=== PATIENT | female | born 1945 | race Caucasian/White ===

== ENCOUNTER 2016-09-05 12:59 | Emergency (ER) | payer MEDICARE, OTHER ==
[~2016-09-05] VITALS: Ht 160 cm; Wt 75.0 kg
[~2016-09-05 12:59] MED LIST: ATOR10TA65 PO; GABA300C PO; HYDR-3498 PO; LISI20TA PO; METF500T4 PO; METH500T8 PO; METO5TAB2 PO; OMEP40CA3 PO; ONDA4TAB35 PO; PANT40TA3 PO; POLY17PO6 PO
[2016-09-05 13:01] VITALS: Ht 160 cm; Wt 75.0 kg
--- NOTE | 2016-09-05 16:16 | RADRPT ---
PROCEDURE: CT Head without contrast. CLINICAL INDICATION: occopital headache, Neck pain x 1 month TECHNIQUE: Continuous axial CT images were obtained from the base of skull to the vertex. No cont rast was administered. The calculated radiation dose measures 720 mGy centimeters. The CTDI measures 44 mGy COMPARISON: None available FINDINGS: There is mild diffuse cerebral volume loss. The ventricles are symmetric and normal in configuratio n. There is no mass effect or midline shift. There is no abnormal intra-axial or extra-axial fluid collection. There is no evidence of intracranial hemorrhage. There are scattered areas of decreased attenuation in the supratentorial white matter, consistent wi th mild small vessel ischemic changes. There is mild to moderate atherosclerotic vascular calcificat ion. The bony calvarium is intact. The orbital soft tissue contents are unremarkable. Paranasal sinuses appear clear. IMPRESSION: 1. Mild age related cerebral volume loss. Mild small vessel ischemic changes. 2. Mild to moderate atherosclerotic vascular calcification. 3. No mass effect or acute intracranial bleed. RPTAT: HBST .Jules Jarquin MD, MD Date Time Electronically viewed and signed by .Jules Jarquin MD, on 09/05/2016 16:15 .T/
--- NOTE | 2016-09-05 16:30 | RADRPT ---
PROCEDURE: CT Cervical Spine without contrast. CLINICAL INDICATION: Neck pain x 1 month TECHNIQUE: Multiple axial cuts through the cervical spine with coronal and sagittal reformats were obtained without contrast. The calculated radiation dose measures 425 mGy centimeters. The CTDI eduardo sures 22 mGy COMPARISON: No prior studies are available for comparison. FINDINGS: There is mild straightening of the normal cervical lordosis. There is mild retrolisthesis at C4-C5, 3 mm. There is moderate to severe disk space narrowing at C4-C5. Vertebral body heights are maint ained. There is mild bony demineralization. The atlantoaxial articulation demonstrates mild to moderate degenerative change.. There is normal c raniocervical alignment. C2-3: There is no gross disk abnormality. There is no significant facet hypertrophy. There is no c entral canal or neural foraminal stenosis. C3-4: There is a mild broad-based disk protrusion, 2 mm. There is minimal bilateral facet hypertrop hy. There is minimal central canal stenosis. There is minimal bilateral foraminal stenosis.. C4-5: There is a mild retrolisthesis, and a mild broad-based disk protrusion. There is bilateral un covertebral hypertrophy. There is mild to moderate bilateral facet hypertrophy. There is at least moderate bony central canal stenosis with AP canal diameter measuring 7.5 mm. There is moderate to severe bilateral foraminal stenosis.. C5-6: There is a minimal disk osteophyte complex, and minimal right uncovertebral hypertrophy. Ther e is mild bilateral facet hypertrophy. There is no bony central canal stenosis. There is mild to m oderate right and mild left bony foraminal stenosis.. C6-7: There is a minimal disk osteophyte complex and bilateral uncovertebral hypertrophy. There is no significant facet hypertrophy. There is no bony central canal stenosis. There is mild to moder ate left foraminal stenosis, and minimal right foraminal stenosis.. C7-T1: There is no gross disk abnormality. There is no significant facet hypertrophy. There is no central canal or neural foraminal stenosis. There is no abnormal paravertebral soft tissue mass. There is small fluid in the left mastoid air ce lls. IMPRESSION: 1. No acute fracture identified. 2. At C4-C5, there is a mild retrolisthesis, 3 mm. There is a mild broad-based disk protrusion. T here is resulting at least moderate central canal stenosis. There is uncovertebral hypertrophy and mild to moderate facet hypertrophy, producing moderate to severe bilateral foraminal stenosis. 3. Mild disk protrusion at C3-C4, with associated minimal central canal stenosis. 4. Mild to moderate right foraminal stenosis at C5-C6 and left foraminal stenosis at C6-C7, related to uncovertebral hypertrophy and facet hypertrophy as described.. RPTAT: HBST .Jules Jarquin MD, MD Date Time Electronically viewed and signed by .Jules Jarquin MD, on 09/05/2016 16:29 .T/
[2016-09-05] MEDS ORDERED: HYDR-906 PO (16:43)
--- NOTE | 2016-09-05 16:59 | ERD ---
ER Documentation Chief Complaint Date/Time DATE: 09/05/16 TIME: 16:53 Chief Complaint neck pain x 1 mos, wants mri HPI 71-year-old female presents with left-sided neck pain with headache, dizziness for approximately 2 months now. Patient describes as aching pain, starts in the occipital region radiates on the left side of her neck, described as moderate pain. Patient denies any pain medication or intervention for this. She denies trauma. Fevers, chills with this. She denies difficulty moving her arms, or any numbness or tingling. ROS All systems reviewed and are negative except as per history of present illness. Medications Home Meds Active Scripts Hydrocodone/Acetaminophen ([place] 5-325 Tablet) 1 Each Tablet, 1 TAB PO Q6H Y for PAIN, #20 TAB Prov:JASON PIERRE PA-C 09/05/16 Ondansetron Hcl* (Zofran* ODT) 4 mg -ODT Tab.disper, 4 MG PO Q6 Y for NAUSEA AND /OR VOMITING, #30 TAB Prov:JANELLE VILLARREAL MD 10/06/15 Hydrocodone Bit-Acetaminophen* ([place]*) 5-325 Mg Tab, 1 TAB PO Q6 Y for PAIN, # 7 TAB Prov:JANELLE VILLARREAL MD 10/06/15 Polyethylene Glycol* (Miralax*) 17 Gm Powd.pack, 17 GM PO DAILY, #30 PACKET Prov:DARLENE COHEN MD 06/01/15 Pantoprazole* (Protonix*) 40 Mg Tablet.dr, 40 MG PO DAILY, #20 TAB Prov:DARLENE COHEN MD 06/01/15 Reported Medications Lisinopril* (Prinivil*) 20 Mg Tablet, PO DAILY 12/07/12 Metformin* (Glucophage*) 500 Mg Tab, PO DAILY 12/07/12 Methocarbamol* (Methocarbamol*) 500 Mg Tablet, PO BID 12/07/12 Atorvastatin Calcium (Atorvastatin Calcium) 10 Mg Tab, PO DAILY 12/07/12 Metoclopramide Hcl (Reglan) 5 Mg Tab, PO TID 12/07/12 Omeprazole* (Prilosec*) 40 Mg Capsule.dr, 40 MG PO DAILY 04/25/11 Gabapentin* (Neurontin*) 300 Mg Capsule, 300 MG PO BID 04/25/11 Allergies Allergies: Coded Allergies: Cyclobenzaprine (Verified Allergy, Severe, 12/31/13) ibuprofen (Verified Allergy, Severe, 12/31/13) PMhx/Soc Medical and Surgical Hx: pt denies Medical Hx, pt denies Surgical Hx History of Surgery: No Anesthesia Reaction: No Hx Neurological Disorder: No Hx Respiratory Disorders: No Hx Cardiac Disorders: No Hx Psychiatric Problems: No Hx Miscellaneous Medical Probl: Yes (DMII) Hx Alcohol Use: No Hx Substance Use: No Hx Tobacco Use: No Smoking Status: Unknown if ever smoked Physical Exam Vitals Vital Signs Date Time Temp Pulse Resp B/P Pulse Ox O2 Delivery O2 Flow Rate FiO2 09/05/16 13:01 98.1 68 18 121/56 99 Physical Exam = General: Well-developed, well-nourished. The patient appears in no acute distress. HEENT: Head is normocephalic, atraumatic. No scleral icterus. Pupils are equal , round, and reactive. Oral mucous membranes are moist. No pharyngeal erythema. Neck: Supple. No masses. No meningismus. Diffuse lateral tenderness in the left side, no crepitus, no midline tenderness. Lungs: Clear to auscultation. Normal air movement. Heart: Regular rate and rhythm. S1 and S2 are normal. No murmurs, gallops, or rubs. Abdomen: Soft, nontender, nondistended. Bowel sounds are normoactive. Extremities: No clubbing or cyanosis. Normal pulses. Moving extremities x 4. No weakness. Neurologic: Alert and oriented 3. No focal deficits. Cranial nerves II 12 grossly intact, speech and gait normal. Skin: Normal turgor. No rash or lesions. Results 24 hrs DIAGNOSTIC IMAGING REPORT Patient: ELIU ZHENG : 1945 Age: 71 Sex: F MR #: [id number] DOS: 09/05/16 1449 Ordering MD: JASON PIERRE PA-C Location: [facility] Room/Bed: PROCEDURE: CT Head without contrast. CLINICAL INDICATION: occopital headache, Neck pain x 1 month TECHNIQUE: Continuous axial CT images were obtained from the base of skull to the vertex. No contrast was administered. The calculated radiation dose measures 720 mGy centimeters. The CTDI measures 44 mGy COMPARISON: None available FINDINGS: There is mild diffuse cerebral volume loss. The ventricles are symmetric and normal in configuration. There is no mass effect or midline shift. There is no abnormal intra-axial or extra-axial fluid collection. There is no evidence of intracranial hemorrhage. There are scattered areas of decreased attenuation in the supratentorial white matter, consistent with mild small vessel ischemic changes. There is mild to moderate atherosclerotic vascular calcification. The bony calvarium is intact. The orbital soft tissue contents are unremarkable. Paranasal sinuses appear clear. IMPRESSION: 1. Mild age related cerebral volume loss. Mild small vessel ischemic changes. 2. Mild to moderate atherosclerotic vascular calcification. 3. No mass effect or acute intracranial bleed. RPTAT: HBST .Janelle Jarquin MD, MD Date Time Electronically viewed and signed by .Janelle Jarquin MD, MD on 09/05/2016 16:15 .T/ CC: JASON PIERRE PA-C Patient: ELIU ZHENG : 1945 Age: 71 Sex: F MR #: [id number] DOS: 09/05/16 1449 Ordering MD: JASON PIERRE PA-C Location: [facility] Room/Bed: PROCEDURE: CT Cervical Spine without contrast. CLINICAL INDICATION: Neck pain x 1 month TECHNIQUE: Multiple axial cuts through the cervical spine with coronal and sagittal reformats were obtained without contrast. The calculated radiation dose measures 425 mGy centimeters. The CTDI measures 22 mGy COMPARISON: No prior studies are available for comparison. FINDINGS: There is mild straightening of the normal cervical lordosis. There is mild retrolisthesis at C4-C5, 3 mm. There is moderate to severe disk space narrowing at C4-C5. Vertebral body heights are maintained. There is mild bony demineralization. The atlantoaxial articulation demonstrates mild to moderate degenerative change.. There is normal craniocervical alignment. C2-3: There is no gross disk abnormality. There is no significant facet hypertrophy. There is no central canal or neural foraminal stenosis. C3-4: There is a mild broad-based disk protrusion, 2 mm. There is minimal bilateral facet hypertrophy. There is minimal central canal stenosis. There is minimal bilateral foraminal stenosis.. C4-5: There is a mild retrolisthesis, and a mild broad-based disk protrusion. There is bilateral uncovertebral hypertrophy. There is mild to moderate bilateral facet hypertrophy. There is at least moderate bony central canal stenosis with AP canal diameter measuring 7.5 mm. There is moderate to severe bilateral foraminal stenosis.. C5-6: There is a minimal disk osteophyte complex, and minimal right uncovertebral hypertrophy. There is mild bilateral facet hypertrophy. There is no bony central canal stenosis. There is mild to moderate right and mild left bony foraminal stenosis.. C6-7: There is a minimal disk osteophyte complex and bilateral uncovertebral hypertrophy. There is no significant facet hypertrophy. There is no bony central canal stenosis. There is mild to moderate left foraminal stenosis, and minimal right foraminal stenosis.. C7-T1: There is no gross disk abnormality. There is no significant facet hypertrophy. There is no central canal or neural foraminal stenosis. There is no abnormal paravertebral soft tissue mass. There is small fluid in the left mastoid air cells. IMPRESSION: 1. No acute fracture identified. 2. At C4-C5, there is a mild retrolisthesis, 3 mm. There is a mild broad- based disk protrusion. There is resulting at least moderate central canal stenosis. There is uncovertebral hypertrophy and mild to moderate facet hypertrophy, producing moderate to severe bilateral foraminal stenosis. 3. Mild disk protrusion at C3-C4, with associated minimal central canal stenosis. 4. Mild to moderate right foraminal stenosis at C5-C6 and left foraminal stenosis at C6-C7, related to uncovertebral hypertrophy and facet hypertrophy as described.. RPTAT: HBST .Janelle Jarquin MD, MD Date Time Electronically viewed and signed by .Janelle Jarquin MD, on 09/05/2016 16:29 .T/ CC: IGNACIO, JASON PA-C Procedures/MDM 12-lead EKG(interpreted by supervising physician): Dr. Cohen Rate/Rhythm: Sinus bradycardia, rate of 57 QRS, ST, T-waves: No changes consistent w/ acute ischemia, no intervals, no dysrhythmias, no ectopy Impression: No evidence of ischemia or arrhythmia 71-year-old female presents with neck pain and headache for the past 2 months. Patient had a CT scan of the head, there is no acute intracranial pathology, she does have moderate to severe is canal stenosis, disc protrusion at C3-C4. These appear to be chronic changes, I do not have any concern for an acute fracture. I have given her copies of all of her results today, have advised that she needs to follow-up with her primary care doctor to get a referral to see physical therapy, as well as a specialist, his surgeon. She states that she has had headaches with this, and feels dizzy. I doubt acute coronary syndrome, or arrhythmias. EKG was performed that showed sinus bradycardia. At this time she does not have any difficulty with movement of the arms, paresthesias or weakness. No signs of stroke, TIA, pontine bleed, meningitis, encephalitis, temporal arteritis. Clinically she is stable, neurologically intact. She states that she is allergic to ibuprofen and Flexeril, she will be given a short course of [place] for pain control. Departure Diagnosis: Primary Impression: Neck pain Condition: Good Patient Instructions: Degenerative Disk Disease Additional Instructions: Llame al doctor MAJOSE y arabella elodia SHAHLA PARA DENTRO DE 1-2 MEYER.Dgale a la secretaria que nosotros le instruimos hacer esta shahla.Avise o llame si leiva condicin se empeora antes de la shahla. Regresa aqui si peor o no mejor. JASON PIERRE PA-C Sep 05, 2016 16:59
== END 2016-09-05 16:58 | disposition home or self-care (01) ==
LOC: FTE 12:59
DX: M54.2 Cervicalgia (principal); E11.9 Type 2 diabetes mellitus without complications; R51 Headache; Z79.84 Long term (current) use of oral hypoglycemic drugs
CPT/HCPCS: 70450; 72125; 93005

== ENCOUNTER 2016-09-26 12:17 | Emergency (ER) | payer MEDICARE, OTHER ==
[~2016-09-26] VITALS: Ht 160 cm; Wt 72.0 kg
[~2016-09-26 12:17] MED LIST changes: +HYDR-906 PO
[2016-09-26 12:26] VITALS: Ht 160 cm; Wt 72.0 kg
[2016-09-26] MEDS ORDERED: ONDANSETRON 4 MG INJ IV STA (12:41)
[2016-09-26] MEDS ORDERED: morphine 4 MG/ML VIAL IV STA (12:41)
[2016-09-26 13:04] LABS: ADD SCAN DIFF NO
[2016-09-26 13:05] LABS: BASOPHILS % 0.4 % (0.0-2.0); EOSINOPHILS # 0.1 10^3/ul (0.0-0.5); EOSINOPHILS % 1.3 % (0.0-7.0); HEMATOCRIT 36.5 % (37.0-47.0); HEMOGLOBIN 12.7 g/dl (12.0-16.0); LYMPHOCYTES % 27.4 % (15.0-51.0); MEAN CORPUSCULAR HEMOGLOBIN 30.2 pg (29.0-33.0); MEAN CORPUSCULAR HGB CONC 34.8 g/dl (32.0-37.0); MEAN CORPUSCULAR VOLUME 86.9 fl (82.0-101.0); MEAN PLATELET VOLUME 11.1 fl (7.4-10.4); MONOCYTE # 0.5 10^3/ul (0.3-0.9); MONOCYTES % 6.3 % (0.0-11.0); NEUTROPHIL # 4.6 10^3/ul (1.6-7.5); NEUTROPHILS % 64.3 % (39.0-77.0); PLATELET COUNT 149 10^3/UL (140-415); RED CELL DISTRIBUTION WIDTH 14.1 % (11.5-14.5); WHITE BLOOD COUNT 7.2 10^3/ul (4.8-10.8)
[2016-09-26 13:20] LABS: INR 1.04; PROTIME 13.6 Sec (12.2-14.2); PT RATIO 1.1
[2016-09-26 13:21] LABS: PARTIAL THROMBOPLASTIN TIME 28.5 Sec (25.0-35.0)
[2016-09-26 13:23] LABS: ANION GAP 19 (8-16); BLOOD UREA NITROGEN 18 mg/dl (7-20); CALCIUM 9.1 mg/dl (8.4-10.2); CARBON DIOXIDE 24 mmol/L (21-31); CHLORIDE 97 mmol/L (97-110); CREATININE 1.12 mg/dl (0.44-1.00); GLUCOSE 152 mg/dl (70-220); POTASSIUM 4.1 mmol/L (3.5-5.1); SODIUM 136 mmol/L (135-144)
--- NOTE | 2016-09-26 13:29 | RADRPT ---
PROCEDURE: Chest Radiograph. CLINICAL INDICATION: Chest pain TECHNIQUE: Single frontal chest radiograph. COMPARISON: Chest radiograph 10/06/2015 FINDINGS: The cardiomediastinal silhouette is within normal limits. No infiltrate or effusion is seen. Th e bones are intact. IMPRESSION: 1. Unremarkable chest radiograph. RPTAT: KK .Jairo Davies MD, MD Date Time Electronically viewed and signed by .Jairo Davies MD, on 09/26/2016 13:28 .B/
[2016-09-26 13:37] LABS: TROPONIN-I < 0.012 ng/ml (0.00-0.12)
[2016-09-26] MEDS ORDERED: ACET325T33 PO (13:44)
--- NOTE | 2016-09-26 13:51 | ERD ---
ER Documentation Chief Complaint Date/Time DATE: 09/26/16 TIME: 13:44 Chief Complaint sob at night x 2 days , unable to sleep , denies any chest pain HPI Patient is a 71-year-old female with no medical problems who presents with shortness of breath and leg pain. The patient says that for the past 2 nights she has had shortness of breath. She feels weakness and pain in her legs bilaterally. She denies fevers or cough. She has had no treatment as of yet. Upon review of old medical records the patient has multiple visits to the ER for various complaints. She cannot remember the name of her primary doctor. ROS All systems reviewed and are negative except as per history of present illness. Medications Home Meds Active Scripts Acetaminophen* (Tylenol*) 325 Mg Tablet, 2 TAB PO Q8 Y for PAIN AND OR ELEVATED TEMP, #20 TAB Prov:JANELLE VILLARREAL MD 09/26/16 Hydrocodone/Acetaminophen ([place] 5-325 Tablet) 1 Each Tablet, 1 TAB PO Q6H Y for PAIN, #20 TAB Prov:JASON PIERRE PA-C 09/05/16 Ondansetron Hcl* (Zofran* ODT) 4 mg -ODT Tab.disper, 4 MG PO Q6 Y for NAUSEA AND /OR VOMITING, #30 TAB Prov:JANELLE VILLARREAL MD 10/06/15 Hydrocodone Bit-Acetaminophen* ([place]*) 5-325 Mg Tab, 1 TAB PO Q6 Y for PAIN, # 7 TAB Prov:JANELLE VILLARREAL MD 10/06/15 Polyethylene Glycol* (Miralax*) 17 Gm Powd.pack, 17 GM PO DAILY, #30 PACKET Prov:DARLENE COHEN MD 06/01/15 Pantoprazole* (Protonix*) 40 Mg Tablet.dr, 40 MG PO DAILY, #20 TAB Prov:DARLENE COHEN MD 06/01/15 Reported Medications Lisinopril* (Prinivil*) 20 Mg Tablet, PO DAILY 12/07/12 Metformin* (Glucophage*) 500 Mg Tab, PO DAILY 12/07/12 Methocarbamol* (Methocarbamol*) 500 Mg Tablet, PO BID 12/07/12 Atorvastatin Calcium (Atorvastatin Calcium) 10 Mg Tab, PO DAILY 12/07/12 Metoclopramide Hcl (Reglan) 5 Mg Tab, PO TID 12/07/12 Omeprazole* (Prilosec*) 40 Mg Capsule.dr, 40 MG PO DAILY 04/25/11 Gabapentin* (Neurontin*) 300 Mg Capsule, 300 MG PO BID 04/25/11 Allergies Allergies: Coded Allergies: Cyclobenzaprine (Verified Allergy, Severe, 12/31/13) ibuprofen (Verified Allergy, Severe, 12/31/13) PMhx/Soc History of Surgery: No Anesthesia Reaction: No Hx Neurological Disorder: No Hx Respiratory Disorders: No Hx Cardiac Disorders: No Hx Psychiatric Problems: No Hx Miscellaneous Medical Probl: Yes (DMII) Hx Alcohol Use: No Hx Substance Use: No Hx Tobacco Use: No FmHx Family History: No diabetes Physical Exam Vitals Vital Signs Date Time Temp Pulse Resp B/P Pulse Ox O2 Delivery O2 Flow Rate FiO2 09/26/16 12:26 98.1 68 18 193/81 99 Physical Exam Const: No acute distress Head: Atraumatic Eyes: Normal Conjunctiva ENT: Normal External Ears, Nose and Mouth. Neck: Full range of motion..~ No meningismus. Resp: Clear to auscultation bilaterally Cardio: Regular rate and rhythm, no murmurs Abd: Soft, non tender, non distended. Normal bowel sounds Skin: No petechiae or rashes Back: No midline or flank tenderness Ext: No cyanosis, or edema Neur: Awake and alert Psych: Normal Mood and Affect Result Diagram: 09/26/16 1250 09/26/16 1250 Results 24 hrs Laboratory Tests Test 09/26/16 12:50 White Blood Count 7.210^3/ul Red Blood Count 4.2010^6/ul Hemoglobin 12.7g/dl Hematocrit 36.5% Mean Corpuscular Volume 86.9fl Mean Corpuscular Hemoglobin 30.2pg Mean Corpuscular Hemoglobin Concent 34.8g/dl Red Cell Distribution Width 14.1% Platelet Count 71196^3/UL Mean Platelet Volume 11.1fl Neutrophils % 64.3% Lymphocytes % 27.4% Monocytes % 6.3% Eosinophils % 1.3% Basophils % 0.4% Nucleated Red Blood Cells % 0.0/100WBC Neutrophils # 4.610^3/ul Lymphocytes # 2.010^3/ul Monocytes # 0.510^3/ul Eosinophils # 0.110^3/ul Basophils # 0.010^3/ul Nucleated Red Blood Cells # 0.010^3/ul Prothrombin Time 13.6Sec Prothrombin Time Ratio 1.1 INR International Normalized Ratio 1.04 Activated Partial Thromboplast Time 28.5Sec Sodium Level 136mmol/L Potassium Level 4.1mmol/L Chloride Level 97mmol/L Carbon Dioxide Level 24mmol/L Anion Gap 19 Blood Urea Nitrogen 18mg/dl Creatinine 1.12mg/dl Glucose Level 152mg/dl Calcium Level 9.1mg/dl Troponin I < 0.012ng/ml Current Medications Medications (Trade) Dose Ordered Sig/Fabiola Route PRN Reason Start Time Stop Time Status Last Admin Dose Admin Morphine Sulfate (morphine) 4 mg ONCE STAT IV 09/26/16 12:41 09/26/16 12:43 DC 09/26/16 13:02 Ondansetron HCl (Zofran Inj) 4 mg ONCE STAT IV 09/26/16 12:41 09/26/16 12:44 DC 09/26/16 13:03 Procedures/MDM EKG read by me: Rate/Rhythm: Regular rate and rhythm at a rate of 67 Intervals: Normal Impression: No evidence of ischemia or arrhythmia Chest x-ray negative per radiology. Patient is a 71-year-old female with no medical problems who presents with shortness of breath. She has leg pain as well. Her EKG is normal. Her chest x -ray is negative. Laboratory studies are normal. At this point I doubt acute coronary syndrome, pneumonia, pneumothorax, pulmonary embolism, or aortic dissection. I believe outpatient management is appropriate. However I do believe the patient requires close follow-up with her primary doctor within 24- 48 hours. She can return sooner for any worsening symptoms. She will be given Tylenol for pain as she has an allergy to ibuprofen. Departure Diagnosis: Primary Impression: Shortness of breath Additional Impression: Leg pain, bilateral Condition: Fair Patient Instructions: Dyspnea Additional Instructions: Llame al doctor MAANA y arabella elodia SHAHLA PARA DENTRO DE 1-2 MEYER.Dgale a la secretaria que nosotros le instruimos hacer esta shahla.Avise o llame si leiva condicin se empeora antes de la hsahla. Regresa aqui si peor o no mejor. JANELLE VILLARREAL MD Sep 26, 2016 13:50
[2016-09-26 14:15] VITALS: BP 140/74; PULSE 68; RESP 20; TEMP 98.5
== END 2016-09-26 14:54 | disposition home or self-care (01) ==
LOC: E/R 12:17
DX: R06.02 Shortness of breath (principal); M79.605 Pain in left leg; M79.604 Pain in right leg; E11.9 Type 2 diabetes mellitus without complications; Z79.84 Long term (current) use of oral hypoglycemic drugs
CPT/HCPCS: 71010; 80048; 84484; 85025; 85610; 85730; 93005; J2270; J2405; 36415; 96374; 96375

== ENCOUNTER 2016-12-05 10:23 | Emergency (ER) | payer MEDICARE, OTHER ==
[~2016-12-05] VITALS: Ht 165.1 cm; Wt 74.0 kg
[~2016-12-05 10:23] MED LIST changes: +ACET325T33 PO
[2016-12-05 10:27] VITALS: Ht 165.1 cm; Wt 74.0 kg
--- NOTE | 2016-12-05 11:26 | ERA ---
ER Documentation Chief Complaint Date/Time DATE: 12/05/16 TIME: 11:25 Chief Complaint LOWER BACK PAIN RADIATING DOWN LEG X7 DAYS HPI The patient is a 71-year-old female, presenting with chronic low back pain, radiating down to bilateral lower extremity, denies fecal/urinary incontinence, fever, chills, neck pain, chest pain, dyspnea, abdominal pain, vomiting, dysuria. She is requesting for pain injection Past medical history: Hypertension, chronic low back pain with sciatica Past surgical history: None ROS All systems reviewed and are negative except as per history of present illness. Medications Home Meds Active Scripts Carisoprodol* (Soma*) 350 Mg Tablet, 350 MG PO TID Y for MUSCLE SPASMS, #15 TAB Prov:DARLENE COHEN MD 12/05/16 Acetaminophen* (Tylenol*) 325 Mg Tablet, 2 TAB PO Q8 Y for PAIN AND OR ELEVATED TEMP, #20 TAB Prov:JANELLE VILLARREAL MD 09/26/16 Hydrocodone/Acetaminophen ([place] 5-325 Tablet) 1 Each Tablet, 1 TAB PO Q6H Y for PAIN, #20 TAB Prov:JASON PIERRE PA-C 09/05/16 Ondansetron Hcl* (Zofran* ODT) 4 mg -ODT Tab.disper, 4 MG PO Q6 Y for NAUSEA AND /OR VOMITING, #30 TAB Prov:JANELLE VILLARREAL MD 10/06/15 Hydrocodone Bit-Acetaminophen* ([place]*) 5-325 Mg Tab, 1 TAB PO Q6 Y for PAIN, # 7 TAB Prov:JANELLE VILLARREAL MD 10/06/15 Polyethylene Glycol* (Miralax*) 17 Gm Powd.pack, 17 GM PO DAILY, #30 PACKET Prov:DARLENE COHEN MD 06/01/15 Pantoprazole* (Protonix*) 40 Mg Tablet.dr, 40 MG PO DAILY, #20 TAB Prov:DARLENE COHEN MD 06/01/15 Reported Medications Lisinopril* (Prinivil*) 20 Mg Tablet, PO DAILY 12/07/12 Metformin* (Glucophage*) 500 Mg Tab, PO DAILY 12/07/12 Methocarbamol* (Methocarbamol*) 500 Mg Tablet, PO BID 12/07/12 Atorvastatin Calcium (Atorvastatin Calcium) 10 Mg Tab, PO DAILY 12/07/12 Metoclopramide Hcl (Reglan) 5 Mg Tab, PO TID 12/07/12 Omeprazole* (Prilosec*) 40 Mg Capsule.dr, 40 MG PO DAILY 04/25/11 Gabapentin* (Neurontin*) 300 Mg Capsule, 300 MG PO BID 04/25/11 Allergies Allergies: Coded Allergies: Cyclobenzaprine (Verified Allergy, Severe, 12/31/13) ibuprofen (Verified Allergy, Severe, 12/31/13) PMhx/Soc History of Surgery: No Anesthesia Reaction: No Hx Neurological Disorder: No Hx Respiratory Disorders: No Hx Cardiac Disorders: No Hx Psychiatric Problems: No Hx Miscellaneous Medical Probl: Yes (DMII) Hx Alcohol Use: No Hx Substance Use: No Hx Tobacco Use: No Physical Exam Vitals Vital Signs Date Time Temp Pulse Resp B/P Pulse Ox O2 Delivery O2 Flow Rate FiO2 12/05/16 10:27 97.8 74 20 140/68 99 Physical Exam Const: No acute distress. Head: Atraumatic. Eyes: Normal Conjunctiva. ENT: Normal External Ears, Nose and Mouth. Neck: Full range of motion. No meningismus. Resp: Clear to auscultation bilaterally. Cardio: Regular rate and rhythm. Abd: Soft, non distended, normal bowel sounds, non tender. Skin: No petechiae or rashes. Back: No midline or flank tenderness.Positive straight leg raising test Ext: No cyanosis, or edema. Neur: Awake and alert. No focal deficit Psych: Normal Mood and Affect. Results 24 hrs Current Medications Medications (Trade) Dose Ordered Sig/Fabiola Route PRN Reason Start Time Stop Time Status Last Admin Dose Admin Ketorolac Tromethamine (Toradol) 30 mg ONCE STAT IM 12/05/16 11:41 12/05/16 11:42 DC 12/05/16 12:07 Procedures/MDM MEDICAL MAKING DECISION: The patient is a 71-year-old female, presenting with chronic low back pain with sciatica. She was treated with Toradol 30 mg IM for pain with good response. She is stable for outpatient follow-up. The differential diagnoses considered include but are not limited to caudal equina syndrome, spinal abscess, DJD, diskitis, lumbar radiculopathy. Departure Diagnosis: Primary Impression: Back pain with sciatica Condition: Good Comments She was advised to continue tramadol and, I added Soma I discussed the findings with the patient. I advised the patient to follow-up with the primary physician in about 1-2 days, sooner if needed and return if any concern. DARLENE COHEN MD Dec 05, 2016 11:26
[2016-12-05] MEDS ORDERED: KETOROLAC 30 MG INJ IM STA (11:41)
[2016-12-05] MEDS ORDERED: CARI350T PO (11:43)
== END 2016-12-05 12:15 | disposition home or self-care (01) ==
LOC: FTE 10:23
DX: M54.40 Lumbago with sciatica, unspecified side (principal); E11.9 Type 2 diabetes mellitus without complications; Z79.84 Long term (current) use of oral hypoglycemic drugs
CPT/HCPCS: 96372; 99284; J1885

== ENCOUNTER 2017-04-16 12:20 | Emergency (ER) | END 2017-04-16 15:30 | disposition left against medical advice (07) ==

== ENCOUNTER 2017-05-25 15:39 | Emergency (ER) | END 2017-05-25 17:35 | disposition left against medical advice (07) ==

== ENCOUNTER 2017-05-26 08:55 | Emergency (ER) | END 2017-05-26 13:17 | disposition home or self-care (01) ==

== ENCOUNTER 2018-02-13 13:00 | Emergency (ER) | END 2018-02-13 15:47 | disposition left against medical advice (07) ==

== ENCOUNTER 2018-05-21 11:54 | Emergency (ER) | payer MEDICARE ==
[~2018-05-21] VITALS: Wt 71.0 kg
[~2018-05-21 11:54] MED LIST changes: +CARI350T PO; +HYDR-4011 PO; -HYDR-906 PO; +METF-849 PO; -METF500T4 PO
--- NOTE | 2018-05-21 12:16 | ERD ---
ER Documentation Chief Complaint Chief Complaint DIZZINESS X 4 DAYS HPI The patient is a 73-year-old female, resenting to the ER because of intermittent dizziness, dyspnea and weakness for the last 4 days. She had similar symptoms w henever she had a cold. She denies fever, chills, neck pain, chest pain, abdominal pain, complains of lower back pain, denies diarrhea, dysuria. She does not smoke, drink Past medical history: Hypertension, dyslipidemia, CAD Past surgical history: None ROS All systems reviewed and are negative except as per history of present illness. Medications Home Meds Active Scripts Cephalexin* (Keflex*) 500 Mg Capsule, 500 MG PO QID for 7 Days, CAP Prov:DARLENE COHEN MD 05/21/18 Reported Medications Metoprolol Tartrate* (Lopressor*) 50 Mg Tab, 50 MG PO DAILY, #60 TAB 05/21/18 Omeprazole* (Omeprazole*) 20 Mg Capsule.dr, 20 MG PO DAILY, #30 CAP 05/21/18 Metformin Hcl* (Metformin Hcl*) 500 Mg Tablet, 500 MG PO WITH BREAKFAST DINNE, #60 TAB 05/21/18 Aspirin (Low Dose Aspirin) 81 Mg Tablet.dr, 81 MG PO DAILY, #30 TAB 05/21/18 Amlodipine Besylate/Benazepril (Amlodipine-Benazepril 5-10 mg) 1 Each Capsule, 1 EACH PO DAILY, CAP 05/21/18 Discontinued Reported Medications Lisinopril* (Prinivil*) 20 Mg Tablet, PO DAILY 12/07/12 Metformin* (Glucophage*) 500 Mg Tab, PO DAILY 12/07/12 Methocarbamol* (Methocarbamol*) 500 Mg Tablet, PO BID 12/07/12 Atorvastatin Calcium (Atorvastatin Calcium) 10 Mg Tab, PO DAILY 12/07/12 Metoclopramide Hcl (Reglan) 5 Mg Tab, PO TID 12/07/12 Omeprazole* (Prilosec*) 40 Mg Capsule.dr, 40 MG PO DAILY 04/25/11 Gabapentin* (Neurontin*) 300 Mg Capsule, 300 MG PO BID 04/25/11 Discontinued Scripts Carisoprodol* (Soma*) 350 Mg Tablet, 350 MG PO TID PRN for MUSCLE SPASMS, #15 TAB Prov:DARLENE COHEN MD 12/05/16 Acetaminophen* (Tylenol*) 325 Mg Tablet, 2 TAB PO Q8 PRN for PAIN AND OR ELEVATED TEMP, #20 TAB Prov:JANELLE VILLARREAL MD 09/26/16 Hydrocodone/Acetaminophen ([place] 5-325 Tablet) 1 Each Tablet, 1 TAB PO Q6H PRN for PAIN, #20 TAB Prov:JASON PIERRE PA-C 09/05/16 Ondansetron Hcl* (Zofran* ODT) 4 mg -ODT Tab.disper, 4 MG PO Q6 PRN for NAUSEA AND/OR VOMITING, #30 TAB Prov:JANELLE VILLARREAL MD 10/06/15 Hydrocodone Bit-Acetaminophen* ([place]*) 5-325 Mg Tab, 1 TAB PO Q6 PRN for PAIN, #7 TAB Prov:JANELLE VILLARREAL MD 10/06/15 Polyethylene Glycol* (Miralax*) 17 Gm Powd.pack, 17 GM PO DAILY, #30 PACKET Prov:DARLENE COHEN MD 06/01/15 Pantoprazole* (Protonix*) 40 Mg Tablet.dr, 40 MG PO DAILY, #20 TAB Prov:DARLENE COHEN MD 06/01/15 Allergies Allergies: Coded Allergies: Cyclobenzaprine (Verified Allergy, Severe, 12/31/13) ibuprofen (Verified Allergy, Severe, 12/31/13) PMhx/Soc History of Surgery: No Anesthesia Reaction: No Hx Neurological Disorder: No Hx Respiratory Disorders: No Hx Cardiac Disorders: Yes (htn) Hx Psychiatric Problems: No Hx Miscellaneous Medical Probl: Yes (DMII, arthritis ) Hx Alcohol Use: No Hx Substance Use: No Hx Tobacco Use: No Physical Exam Vitals Vital Signs Date Temp Pulse Resp B/P (MAP) Pulse Ox O2 O2 Flow FiO2 Time Delivery Rate 05/21/18 71 17 120/57 100 Room Air 17:32 (78) 05/21/18 63 17 110/62 100 Room Air 15:38 (78) 05/21/18 64 17 134/64 97 Room Air 12:31 (87) 05/21/18 97.6 72 20 129/58 99 12:07 (81) Physical Exam Const: No acute distress. Head: Atraumatic. Eyes: Normal Conjunctiva. ENT: Normal External Ears, Nose and Mouth. Neck: Full range of motion. No meningismus. Resp: Clear to auscultation bilaterally. Cardio: Regular rate and rhythm. Abd: Soft, non distended, normal bowel sounds, non tender. Skin: No petechiae or rashes. Back: No midline or flank tenderness. Ext: No cyanosis, or edema. Neur: Awake and alert. No focal deficit Psych: Normal Mood and Affect. Result Diagram: 05/21/18 1247 05/21/18 1247 Results 24 hrs Laboratory Tests Test 05/21/18 12:38 05/21/18 12:47 05/21/18 12:49 05/21/18 17:53 Bedside Glucose 99 mg/dL White Blood Count 6.8 10^3/ul Red Blood Count 4.53 10^6/ul Hemoglobin 13.2 g/dl Hematocrit 39.6 % Mean Corpuscular 87.4 fl Volume Mean Corpuscular 29.1 pg Hemoglobin Mean Corpuscular 33.3 g/dl Hemoglobin Concent Red Cell 13.7 % Distribution Width Platelet Count 192 10^3/UL Mean Platelet 11.3 fl Volume Immature 0.300 % Granulocytes % Neutrophils % 56.8 % Lymphocytes % 31.7 % Monocytes % 8.4 % Eosinophils % 2.4 % Basophils % 0.4 % Nucleated Red Blood 0.0 /100WBC Cells % Immature 0.020 10^3/ul Granulocytes # Neutrophils # 3.8 10^3/ul Lymphocytes # 2.1 10^3/ul Monocytes # 0.6 10^3/ul Eosinophils # 0.2 10^3/ul Basophils # 0.0 10^3/ul Nucleated Red Blood 0.0 10^3/ul Cells # Prothrombin Time 12.8 Sec Prothrombin Time 1.0 Ratio INR International 0.95 Normalized Ratio Activated 29.4 Sec Partial Thromboplas t Time Sodium Level 138 mmol/L Potassium Level 4.7 mmol/L Chloride Level 102 mmol/L Carbon Dioxide 24 mmol/L Level Anion Gap 12 Blood Urea Nitrogen 28 mg/dl Creatinine 1.15 mg/dl Est Glomerular mL/min Filtrat Rate mL/min Glucose Level 108 mg/dl Calcium Level 9.4 mg/dl Troponin I < 0.012 ng/ml Bedside Urine pH 5.5 7.0 (LAB) Bedside Urine Negative Negative Protein (LAB) Bedside Urine Negative Negative Glucose (UA) Bedside Urine Negative Negative Ketones (LAB) Bedside Urine Blood Trace-intact 2+ Bedside Urine Negative Negative Nitrite (LAB) Bedside Urine 3+ Trace Leukocyte Esterase (L Current Medications Medications Dose Sig/Fabiola Start Time Status Last (Trade) Ordered Route PRN Stop Time Admin Dose Reason Admin Ceftriaxone 50 ml @ ONCE ONCE 05/21/18 DC 05/21/18 Sodium 100 mls/hr IVPB 13:30 13:27 05/21/18 13:59 Sodium 1,000 ml @ Q1H ONCE 05/21/18 DC 05/21/18 Chloride 1,000 mls/hr IV 14:30 14:30 05/21/18 15:29 Procedures/[place] [address] Radiology Main Line: [phone] DIAGNOSTIC IMAGING REPORT Patient: ELIU ZHENG : 1945 Age: 73 Sex: F MR #: [id number] DOS: 05/21/18 1230 Ordering MD: DARLENE COHEN MD Location: E/R Room/Bed: PROCEDURE: CT brain without contrast CLINICAL INDICATION: Dizziness, blurred vision TECHNIQUE: CT of the brain without contrast performed on a multidetector CT scanner, with multiplanar reformats. One or more of the following dose reduct ion techniques were used: Automated exposure control, adjustment in mA and / or kV according to patient size, use of iterative reconstructive technique. CTDIvol = 39 mGy; DLP = 634 mGy-cm. DICOM images are available. COMPARISON: 09/05/2016 FINDINGS: No acute intracranial hemorrhage is identified. No extra-axial fluid collection is seen. There is no mass effect. No midline shift is identified. There is no hydrocephalus. There are mild areas of hypodensity in the periventricular - deep white matter which are nonspecific but suggestive of chronic small vessel ischemic changes. German-white junctions are preserved. Atherosclerotic calcifications of the proximal intracranial arteries are noted. Calvarium and skull base are intact. Mastoid air cells and imaged paranasal si nuses grossly clear. IMPRESSION: 1. No evidence of acute intracranial pathology. 2. Mild chronic small vessel ischemic changes. RPTAT: VV .William Amanda MD, MD Date Time Electronically viewed and signed by .William Amanda MD, MD on 05/21/2018 13:31 .O/ CC: DARLENE COHEN MD [phone] [place] [address] Radiology Main Line: [phone] DIAGNOSTIC IMAGING REPORT Patient: ELIU ZHENG : 1945 Age: 73 Sex: F MR #: [id number] DOS: 05/21/18 1230 Ordering MD: DARLENE COHEN MD Location: E/R Room/Bed: PROCEDURE: XR Chest. CLINICAL INDICATION: chest pain TECHNIQUE: Single frontal view of the chest was obtained COMPARISON: CR CHEST 09/26/2016 FINDINGS: The heart and mediastinum are within normal limits. The lungs are clear. There is no pleural effusion or pneumothorax. RPTAT: AA IMPRESSION: No acute disease. .Kamar Arellano MD, MD Date Time Electronically viewed and signed by .Kamar Arellano MD, on 05/21/2018 13:10 .S/ CC: DARLENE COHEN MD [phone] EKG: Read by emergency physician Rate/Rhythm: Normal Sinus Rhythm 60 beats/min QRS, ST, T-waves: No ST elevation, no T inversion Impression: Normal EKG MEDICAL MAKING DECISION: The patient is a 73-year-old female, presenting with acute dehydration, acute dizziness most likely due to dehydration, acute cystitis. She was treated with Rocephin 1 g IV for acute cystitis, 1 L normal saline for acute dehydration with good response, is stable for outpatient follow-up The differential diagnoses considered include but are not limited to central causes such as cerebellar infarct, cerebellar hemorrhage, cerebellar tumor, acoustic neuroma, peripheral causes such as benign positional vertigo, labyrinthitis, medication, Meniere's disease. Departure Diagnosis: Primary Impression: UTI (urinary tract infection) Additional Impression: Dehydration Condition: Good Comments She was discharged with Keflex I discussed the findings with the patient. I advised the patient to follow-up with the primary physician in about 2-3 days, sooner if needed and return if any concern. Disclaimer: Inadvertent spelling and grammatical errors are likely due to EHR/dictation software use and do not reflect on the overall quality of patient care. Also, please note that the electronic time recorded on this note does not necessarily reflect the actual time of the patient encounter. DARLENE COHEN MD May 21, 2018 12:16
[2018-05-21] MEDS ORDERED: ASPI81TA52 PO (13:12)
[2018-05-21] MEDS ORDERED: AMLO1CAP8 PO (13:12)
[2018-05-21] MEDS ORDERED: METF500T24 PO (13:12)
[2018-05-21] MEDS ORDERED: OMEP20CA16 PO (13:13)
[2018-05-21] MEDS ORDERED: METO-429 PO (13:13)
[2018-05-21] MEDS ORDERED: CEFTRIAXONE 1 GM/50 ML (PMX) 50 ML IVPB ONE (13:30)
[2018-05-21] MEDS ORDERED: SOD CHLORIDE 0.9% 1,000 ML IV ONE (14:30)
[2018-05-21] MEDS ORDERED: CEPH-443 PO (15:27)
[2018-05-21 17:32] VITALS: BP 120/57; PULSE 71; RESP 17
== END 2018-05-21 18:16 | disposition home or self-care (01) ==
LOC: E/R 11:54
DX: N39.0 Urinary tract infection, site not specified (principal); E86.0 Dehydration; I10 Essential (primary) hypertension; E11.9 Type 2 diabetes mellitus without complications; I25.10 Atherosclerotic heart disease of native coronary artery without angina pectoris; R07.9 Chest pain, unspecified; Z79.82 Long term (current) use of aspirin; Z79.84 Long term (current) use of oral hypoglycemic drugs
CPT/HCPCS: 36415; 70450; 71045; 80048; 81003; 82962; 84484; 85025; 85610; 85730; 87086; 93005; 96365; 96366; 99285; J0696; J7030

== ENCOUNTER 2018-06-09 09:27 | Emergency (ER) | payer MEDICARE, OTHER ==
[~2018-06-09] VITALS: Ht 160 cm; Wt 71.2 kg
[~2018-06-09 09:27] MED LIST changes: -ACET325T33 PO; +AMLO1CAP8 PO; +ASPI81TA52 PO; -ATOR10TA65 PO; -CARI350T PO; +CEPH-443 PO; -GABA300C PO; -HYDR-3498 PO; -HYDR-4011 PO; -LISI20TA PO; -METF-849 PO; +METF500T24 PO; -METH500T8 PO; +METO-429 PO; -METO5TAB2 PO; +OMEP20CA16 PO; -OMEP40CA3 PO; -ONDA4TAB35 PO; -PANT40TA3 PO; -POLY17PO6 PO
[2018-06-09 09:30] VITALS: RESP 20; Ht 160 cm; Wt 71.2 kg
--- NOTE | 2018-06-09 09:44 | ERD ---
ER Documentation Chief Complaint Chief Complaint COUGH , CHEST CONGESTION , NAUSEA , DIZZINESS X 1 WEEK HPI This is a 73-year-old female presents with cough and congestion, associated with nausea for the last week. Patient was seen earlier this week at [facility], and evaluated for abdominal pain with imaging and blood work, which patient states was negative, she was discharged with naproxen and Zofran. She continued to have a cough and flulike symptoms, she denies shortness of breath, she did see her primary care doctor who told her she had possible bronchitis. She has no chest pain. ROS All systems reviewed and are negative except as per history of present illness. Medications Home Meds Reported Medications Omeprazole* (Omeprazole*) 20 Mg Capsule.dr, 20 MG PO DAILY, #30 CAP 05/21/18 Aspirin (Low Dose Aspirin) 81 Mg Tablet.dr, 81 MG PO DAILY, #30 TAB 05/21/18 Amlodipine Besylate/Benazepril (Amlodipine-Benazepril 5-10 mg) 1 Each Capsule, 1 EACH PO DAILY, CAP 05/21/18 Discontinued Reported Medications Metoprolol Tartrate* (Lopressor*) 50 Mg Tab, 50 MG PO DAILY, #60 TAB 05/21/18 Metformin Hcl* (Metformin Hcl*) 500 Mg Tablet, 500 MG PO WITH BREAKFAST DINNE, #60 TAB 05/21/18 Discontinued Scripts Cephalexin* (Keflex*) 500 Mg Capsule, 500 MG PO QID for 7 Days, CAP Prov:DARLENE COHEN MD 05/21/18 Allergies Allergies: Coded Allergies: No Known Allergy (Unverified , 06/09/18) PMhx/Soc History of Surgery: No Anesthesia Reaction: No Hx Neurological Disorder: No Hx Respiratory Disorders: No Hx Cardiac Disorders: Yes (htn) Hx Psychiatric Problems: No Hx Miscellaneous Medical Probl: Yes (DMII, arthritis ) Hx Alcohol Use: No Hx Substance Use: No Hx Tobacco Use: No Physical Exam Vitals Vital Signs Date Temp Pulse Resp B/P (MAP) Pulse Ox O2 O2 Flow FiO2 Time Delivery Rate 06/09/18 66 95/76 (82) 100 Room Air 10:05 06/09/18 98.8 68 20 179/71 100 09:30 (107) Physical Exam Const: Well-appearing, nontoxic, afebrile, elderly appearing female, who appears stated age. Head: Atraumatic Eyes: Normal Conjunctiva ENT: Normal External Ears, Nose and Mouth. Neck: Full range of motion. No meningismus. Resp: Clear to auscultation bilaterally, no wheezes rales or rhonchi Cardio: Regular rate and rhythm, no murmurs Abd: Soft, non tender, non distended, no rebound or guarding. Normal bowel sounds Skin: No petechiae or rashes Back: No midline or flank tenderness Ext: No cyanosis, or edema Neur: Awake and alert Psych: Normal Mood and Affect Procedures/MDM 73-year-old female presents for what appears to be a viral-like illness, on exam she is afebrile and nontoxic, no peritoneal signs on abdominal exam. I discussed findings with patient and family, her chest x-ray showed no evidence of pneumonia, at this point she is stable for discharge home, at discharge she was in no acute distress. EKG: Rate/Rhythm: Normal Sinus Rhythm QRS, ST, T-waves: No changes consistent w/ acute ischemia Impression: No evidence of ischemia or arrhythmia Departure Diagnosis: Primary Impression: Viral syndrome Additional Impression: Bronchitis Condition: Stable GWYN TAYLOR MD Jun 09, 2018 09:44
[2018-06-09 10:05] VITALS: BP 95/76; PULSE 66
== END 2018-06-09 12:30 | disposition home or self-care (01) ==
LOC: E/R 09:27
DX: B34.9 Viral infection, unspecified (principal); J40 Bronchitis, not specified as acute or chronic; I10 Essential (primary) hypertension; E11.9 Type 2 diabetes mellitus without complications; Z79.82 Long term (current) use of aspirin
CPT/HCPCS: 71045; 87400; 93005

== ENCOUNTER 2018-09-03 07:38 | Emergency (ER) | payer MEDICARE, OTHER ==
[~2018-09-03] VITALS: Ht 160 cm; Wt 70.0 kg
[~2018-09-03 07:38] MED LIST changes: -CEPH-443 PO; -METF500T24 PO; -METO-429 PO
[2018-09-03 07:42] VITALS: BP 142/88; PULSE 76; RESP 20; Ht 160 cm; Wt 70.0 kg
[2018-09-03] MEDS ORDERED: ALBUTEROL 0.083% (NEB) 2.5 MG/3 ML AMP HHN STA (07:56)
[2018-09-03] MEDS ORDERED: CEFTRIAXONE 1 GM INJ IM ONE (08:00)
[2018-09-03] MEDS ORDERED: IPRATROPIUM (NEB) 0.5 MG/2.5 ML AMP HHN ONE (08:00)
[2018-09-03] MEDS ORDERED: LIDOCAINE 1% (MPF) 5 ML VIAL INJ ONE (08:00)
[2018-09-03] MEDS ORDERED: DEXAMETHASONE 10 MG/ML 1 ML INJ IM ONE (08:00)
[2018-09-03] MEDS ORDERED: BENZ-6 PO (09:12)
[2018-09-03] MEDS ORDERED: ALBU8.5H8 INH (09:12)
[2018-09-03] MEDS ORDERED: D-ME473S2 PO (09:12)
[2018-09-03] MEDS ORDERED: LEVO750T25 PO (09:12)
[2018-09-03] MEDS ORDERED: PRED20TA PO (09:12)
--- NOTE | 2018-09-03 09:21 | ERD ---
ER Documentation Chief Complaint Chief Complaint cough & congestion x2wks, speaking full sentences HPI 73-year-old female presenting with cough and congestion x2 weeks. She states she has had a productive cough with diffuse body aches. Her last dose of Tylenol was taken 12 hours ago. Has a mild sore throat with a headache and runny nose. No fevers. Patient is prediabetic. NKDA. Surgical history denies. Social history denies ROS All systems reviewed and are negative except as per history of present illness. Medications Home Meds Active Scripts Albuterol Sulfate* (Proair HFA*) 8.5 Gm Hfa.aer.ad, 2 PUFF INH Q4, #1 INHALER Prov:KERRIE GARCIA PA-C 09/03/18 Dextromethorphan Hb-Promethazine Hcl* (Promethazine DM* Syrup) 473 Ml Syrup, 5 ML PO Q6 PRN for COUGH, #100 ML Prov:KERRIE GARCIA PA-C 09/03/18 Benzonatate* (Tessalon Perle*) 100 Mg Capsule, 100 MG PO Q8H PRN for COUGH, #30 CAP Prov:KERRIE GARCIA PA-C 09/03/18 Prednisone* (Prednisone*) 20 Mg Tab, 40 MG PO DAILY for 4 Days, TAB Prov:KERRIE GARCIA PA-C 09/03/18 Levofloxacin* (Levaquin*) 750 Mg Tablet, 750 MG PO DAILY for 5 Days, TAB Prov:KERRIE GARCIA PA-C 09/03/18 Reported Medications Omeprazole* (Omeprazole*) 20 Mg Capsule.dr, 20 MG PO DAILY, #30 CAP 05/21/18 Aspirin (Low Dose Aspirin) 81 Mg Tablet.dr, 81 MG PO DAILY, #30 TAB 05/21/18 Amlodipine Besylate/Benazepril (Amlodipine-Benazepril 5-10 mg) 1 Each Capsule, 1 EACH PO DAILY, CAP 05/21/18 Allergies Allergies: Coded Allergies: No Known Allergy (Unverified , 06/09/18) PMhx/Soc Medical and Surgical Hx: pt denies Medical Hx, pt denies Surgical Hx History of Surgery: No Anesthesia Reaction: No Hx Neurological Disorder: No Hx Respiratory Disorders: No Hx Cardiac Disorders: Yes (htn) Hx Psychiatric Problems: No Hx Miscellaneous Medical Probl: Yes (DMII, arthritis ) Hx Alcohol Use: No Hx Substance Use: No Hx Tobacco Use: No Smoking Status: Never smoker FmHx Family History: No diabetes, No coronary disease, No other Physical Exam Vitals Vital Signs Date Temp Pulse Resp B/P (MAP) Pulse Ox O2 O2 Flow FiO2 Time Delivery Rate 09/03/18 98.0 76 20 142/88 97 07:42 (106) Physical Exam GENERAL: The patient is well-appearing, well-nourished, in no acute distress HEENT: Atraumatic. Conjunctivae are pink. Pupils equal, round, and reactive to light. There is no scleral icterus. Tympanic membranes clear bilaterally. Oropharynx clear. NECK: C-spine is soft and supple. There is no meningismus. There is no cervical lymphadenopathy. CHEST: Coarse breath sounds heard throughout. No focal rhonchi or retractions. Mild wheezing heard throughout. HEART: Regular rate and rhythm. No murmurs, clicks, rubs or gallops. Results 24 hrs Current Medications Medications Dose Sig/Fabiola Start Time Status Last (Trade) Ordered Route PRN Stop Time Admin Dose Reason Admin Ceftriaxone 1 gm ONCE ONCE 09/03/18 DC 09/03/18 Sodium IM 08:00 08:07 (Rocephin) 09/03/18 08:01 Lidocaine 5 ml ONCE ONCE 09/03/18 DC 09/03/18 (Xylocaine INJ 08:00 08:07 1% (Mpf)) 09/03/18 08:01 Albuterol 5 mg ONCE STAT 09/03/18 DC 09/03/18 (Proventil HHN 07:56 08:22 0.083% (Neb)) 09/03/18 07:59 Ipratropium 0.5 mg ONCE ONCE 09/03/18 DC 09/03/18 [place] HHN 08:00 08:21 (Atrovent 09/03/18 08:01 0.02% (Neb)) 10 mg ONCE ONCE 09/03/18 DC 09/03/18 Dexamethasone IM 08:00 08:07 (Decadron) 09/03/18 08:01 Procedures/MDM DIAGNOSTIC IMAGING REPORT Patient: ELIU ZHENG : 1945 Age: 73 Sex: F MR #: [id number] [facility] #: [id number] DOS: 09/03/18 0756 Ordering MD: MIRI GARCIA PA-C Location: [facility] Room/Bed: PROCEDURE: XR Chest. CLINICAL INDICATION: Cough and congestion TECHNIQUE: Single frontal view of the chest was obtained COMPARISON: CR CHEST 09/26/2016; CR CHEST 10/06/2015 FINDINGS: The heart and mediastinum are within normal limits. No discrete focal consolidation. There is no pleural effusion or pneumothorax. IMPRESSION: No acute cardiopulmonary process. ER Course: Albuterol and Atrovent breathing treatment with Decadron given in ED. On reevaluation patient was comfortable and had no respiratory distress. MDM: 73-year-old female presenting with productive cough and coarse breath sounds. Patient's x-ray is within normal limits however given age and duration of complaint patient will be treated with oral antibiotics and steroids. I have concern for early development of pneumonia or bacterial process within the lungs. Patient is discharged with strict ER precautions and told to follow-up with primary care within 1 to 2 days for close evaluation. Patient is discharged with strict ER precautions. All questions answered at discharge Departure Diagnosis: Primary Impression: Bronchitis Condition: Stable Patient Instructions: Bronchitis With Wheezing (Adult) Referrals: COMM[facility]ITY CLIN[facility] YOU HAVE RECEIVED A MEDICAL SCREENING EXAM AND THE RESULTS INDICATE THAT YOU DO NOT HAVE A CONDITION THAT REQUIRES URGENT TREATMENT IN THE EMERGENCY DEPARTMENT. FURTHER EVALUATION AND TREATMENT OF YOUR CONDITION CAN WAIT UNTIL YOU ARE SEEN IN YOUR DOCTORS OFFICE WITHIN THE NEXT 1-2 DAYS. IT IS YOUR RESPONSIBILITY TO MAKE AN APPOINTMENT FOR FOLOW-UP CARE. IF YOU HAVE A PRIMARY DOCTOR --you should call your primary doctor and schedule an appointment IF YOU DO NOT HAVE A PRIMARY DOCTOR YOU CAN CALL OUR PHYSICIAN REFERRAL HOTLINE AT IF YOU CAN NOT AFFORD TO SEE A PHYSICIAN YOU CAN CHOSE FROM THE FOLLOWING [facility] [address] [facility]. [facility] [address] [facility] [address] [facility] [address] [facility]. [facility] [address] [facility]. [employer] [facility] [address] Additional Instructions: FOLLOW UP WITH YOUR PRIMARY CARE PHYSICIAN TOMORROW.Return to this facility if you are not improving as expected. KERRIE GARCIA PA-C Sep 03, 2018 09:21
== END 2018-09-03 09:35 | disposition home or self-care (01) ==
LOC: FTE 07:38
DX: J40 Bronchitis, not specified as acute or chronic (principal); I10 Essential (primary) hypertension; E11.9 Type 2 diabetes mellitus without complications; Z79.82 Long term (current) use of aspirin
CPT/HCPCS: 71045; 94664; 96372; 99284; J0696; J1100

== ENCOUNTER 2018-09-21 19:15 | Emergency (ER) | payer MEDICARE, OTHER ==
[~2018-09-21] VITALS: Ht 160 cm; Wt 70.2 kg
[~2018-09-21 19:15] MED LIST changes: +ALBU8.5H8 INH; +BENZ-6 PO; +D-ME473S2 PO; +LEVO750T25 PO; +PRED20TA PO
[2018-09-21 19:17] VITALS: Ht 160 cm; Wt 70.2 kg
[2018-09-21] MEDS ORDERED: ACETAMINOPHEN 325 MG TAB PO ONE (21:00)
[2018-09-21] MEDS ORDERED: ACET500C5 PO (22:23)
[2018-09-21] MEDS ORDERED: TRAM50TA2 PO (22:23)
--- NOTE | 2018-09-21 22:25 | ERD ---
ER Documentation Chief Complaint Chief Complaint "squeezing" discomfort in head x 5 days HPI 73-year-old female presents with complaints of occipital headache for the last 5 days. She denies any history of trauma, fevers, deficits, vomiting, visual changes. Denies any inciting events. ROS All systems reviewed and are negative except as per history of present illness. Medications Home Meds Active Scripts Tramadol HCl (Tramadol HCl) 50 Mg Tablet, 50 MG PO Q4 PRN for PAIN, #15 TAB Prov:RODNEY HUNTER MD 09/21/18 Acetaminophen* (Tylophen*) 500 Mg Capsule, 1 CAP PO Q6H PRN for PAIN AND OR ELEVATED TEMP, #20 CAP Prov:RODNEY HUNTER MD 09/21/18 Albuterol Sulfate* (Proair HFA*) 8.5 Gm Hfa.aer.ad, 2 PUFF INH Q4, #1 INHALER Prov:KERRIE GARCIA PA-C 09/03/18 Dextromethorphan Hb-Promethazine Hcl* (Promethazine DM* Syrup) 473 Ml Syrup, 5 ML PO Q6 PRN for COUGH, #100 ML Prov:KERRIE GARCIA PA-C 09/03/18 Benzonatate* (Tessalon Perle*) 100 Mg Capsule, 100 MG PO Q8H PRN for COUGH, #30 CAP Prov:KERRIE GARCIA PA-C 09/03/18 Prednisone* (Prednisone*) 20 Mg Tab, 40 MG PO DAILY for 4 Days, TAB Prov:KERRIE GARCIA PA-C 09/03/18 Levofloxacin* (Levaquin*) 750 Mg Tablet, 750 MG PO DAILY for 5 Days, TAB Prov:KERRIE GARCIA PA-C 09/03/18 Reported Medications Omeprazole* (Omeprazole*) 20 Mg Capsule.dr, 20 MG PO DAILY, #30 CAP 05/21/18 Aspirin (Low Dose Aspirin) 81 Mg Tablet.dr, 81 MG PO DAILY, #30 TAB 05/21/18 Amlodipine Besylate/Benazepril (Amlodipine-Benazepril 5-10 mg) 1 Each Capsule, 1 EACH PO DAILY, CAP 05/21/18 Allergies Allergies: Coded Allergies: No Known Allergy (Unverified , 06/09/18) PMhx/Soc Medical and Surgical Hx: pt denies Surgical Hx History of Surgery: No Anesthesia Reaction: No Hx Neurological Disorder: No Hx Respiratory Disorders: No Hx Cardiac Disorders: Yes (htn) Hx Psychiatric Problems: No Hx Miscellaneous Medical Probl: Yes (DMII, arthritis ) Hx Alcohol Use: No Hx Substance Use: No Hx Tobacco Use: No Smoking Status: Never smoker FmHx Family History: No diabetes, No coronary disease, No other Physical Exam Vitals Vital Signs Date Temp Pulse Resp B/P (MAP) Pulse Ox O2 O2 Flow FiO2 Time Delivery Rate 09/21/18 98.5 71 16 163/70 100 19:17 (101) Physical Exam Const: No acute distress Head: Atraumatic Eyes: Normal Conjunctiva. Eyes Armando and extraocular movements intact. ENT: Normal External Ears, Nose and Mouth. Neck: Full range of motion. No meningismus. Resp: Clear to auscultation bilaterally Cardio: Regular rate and rhythm, no murmurs Abd: Soft, non tender, non distended. Normal bowel sounds Skin: No petechiae or rashes Back: No midline or flank tenderness Ext: No cyanosis, or edema Neur: Awake and alert. Normal gait. No pronator drift. Cranial nerves II through XII grossly intact. Psych: Normal Mood and Affect Results 24 hrs Current Medications Medications Dose Sig/Fabiola Start Time Status Last (Trade) Ordered Route PRN Stop Time Admin Dose Reason Admin 650 mg ONCE ONCE 09/21/18 DC 09/21/18 Acetaminophen PO 21:00 20:58 (Tylenol 09/21/18 21:01 Tab) Procedures/MDM CT brain shows no acute abnormalities. EKG: Rate/Rhythm: Normal Sinus Rhythm. Rate equals 61 QRS, ST, T-waves: No changes consistent w/ acute ischemia Impression: No evidence of ischemia or arrhythmia Sickle headache without findings of neurologic deficit, signs or symptoms to suggest bleeding, neurologic deficit, meningitis, additional concerning signs or symptoms. She may have tension headache or musculoskeletal pain rating from the cervical spine. We will treat with a short course of tramadol, Tylenol, recommendations for primary care follow-up and return precautions. The patient was stable with no new complaints during the ER course. Clinically, there is no current evidence to suggest meningitis, sepsis, acute abdomen, pneumonia, stroke, acute coronary syndrome, pulmonary embolism, aortic dissection or any other emergent condition appearing to require further evaluation or hospitalization. Patient counseled regarding my diagnostic impression and care plan. Prior to discharge all questions answered. Pt agrees with treatment plan and understands strict return precautions. Pt is instructed to follow up with primary care provider within 24-48 hours. Precautionary instructions provided including instructions to return to the ER if not improving or for any worsening or changing symptoms or concerns. Disclaimer: Inadvertent spelling and grammatical errors are likely due to EHR/dictation software use and do not reflect on the overall quality of patient care. Also, please note that the electronic time recorded on this note does not necessarily reflect the actual time of the patient encounter. Departure Diagnosis: Primary Impression: Headache Headache type: unspecified Headache chronicity pattern: unspecified pattern Intractability: not intractable Qualified Codes: R51 - Headache Condition: Stable Patient Instructions: Self-Care for Headaches Referrals: NO PRIMARY,CARE PHYSICIAN (PCP) Additional Instructions: Examines normal hoy. Cheque otro vez con leiva doctor primario en el proximo soria or regresa para mas o nueva simptomas. RODNEY HUNTER MD Sep 21, 2018 22:25
[2018-09-21 22:53] VITALS: BP 124/61; PULSE 65; RESP 16
== END 2018-09-21 22:54 | disposition home or self-care (01) ==
LOC: FTE 19:15
DX: R51 Headache (principal); I10 Essential (primary) hypertension; E11.9 Type 2 diabetes mellitus without complications; Z79.82 Long term (current) use of aspirin
CPT/HCPCS: 70450; 93005